=== PATIENT | female | born 1995 | race Caucasian/White ===

== ENCOUNTER 2018-06-14 07:32 | Day surgery (SDC) | payer OTHER ==
[~2018-06-14] VITALS: Ht 152.4 cm; Wt 44.8 kg
[~2018-06-14 07:32] MED LIST: ACETAMINOPHEN 650 MG SUPP PR ONE; LR 1,000 ML IV SCH
[2018-06-14] MEDS ORDERED: ROCURONIUM BROMIDE 50 MG/5 ML VIAL As Ordered ONE (07:52)
[2018-06-14] MEDS ORDERED: PROPOFOL 200 MG/20 ML VIAL As Ordered ONE (07:52)
[2018-06-14] MEDS ORDERED: LIDOCAINE 2% INJ 100 MG/5 ML SDV (FOR ANES.) As Ordered ONE (07:52)
[2018-06-14] MEDS ORDERED: ONDANSETRON 4MG/2ML VIAL (J2405) As Ordered ONE (07:52)
[2018-06-14] MEDS ORDERED: dexameTHASONE 4 MG/ML 1ML VIAL (J1100) As Ordered ONE (07:52)
[2018-06-14] MEDS ORDERED: KETOROLAC 60 MG/2 ML VIAL (J1885) As Ordered ONE (07:52)
[2018-06-14] MEDS ORDERED: MIDAZOLAM INJ 2 MG/2 ML VIAL (J2250) As Ordered ONE (07:53)
[2018-06-14] MEDS ORDERED: fentaNYL 100 MCG/2 ML INJECTION (J3010) As Ordered ONE ×2 (07:56→09:47)
[2018-06-14 08:00] LABS: HEMATOCRIT 42.1 % (36.0-47.0); HEMOGLOBIN 14.4 g/dl (12.0-15.5); MEAN CORPUSCULAR HEMOGLOBIN 33.6 pg (27.0-33.0); MEAN CORPUSCULAR HGB CONC 34.2 g/dl (32.0-36.5); MEAN CORPUSCULAR VOLUME 98.1 fl (80.0-96.0); PLATELET COUNT, AUTOMATED 270 10^3/uL (150-450); RED BLOOD COUNT 4.29 10^6/uL (4.00-5.40); WHITE BLOOD COUNT 7.4 10^3/uL (4.0-10.0)
[2018-06-14 08:24] LABS: BLOOD UREA NITROGEN 9 MG/DL (7-18); CALCIUM LEVEL 8.8 MG/DL (8.5-10.1); CARBON DIOXIDE LEVEL 28 MEQ/L (21-32); CHLORIDE LEVEL 106 MEQ/L (98-107); CREATININE FOR GFR 0.65 MG/DL (0.55-1.30); GLOMERULAR FILTRATION RATE > 60.0 (>60); GLUCOSE, FASTING 83 MG/DL (70-100); HCG, SERUM QUANTITATIVE < 1.0 MIU/ML; POTASSIUM SERUM 4.1 MEQ/L (3.5-5.1); SODIUM LEVEL 140 MEQ/L (136-145)
[2018-06-14] MEDS ORDERED: BUPIVACAINE HCL 0.25% 10 ML VIAL As Ordered ONE (09:07)
[2018-06-14] MEDS ORDERED: METHYLENE BLUE 0.5% (5MG/ML) 10 ML AMP (PROVAYBLUE)(Q9968 PER 1MG) As Ordered ONE (09:08)
[2018-06-14] MEDS ORDERED: ACETAMINOPHEN 650 MG SUPP As Ordered ONE (09:08)
[2018-06-14] MEDS ORDERED: SUGAMMADEX SODIUM 500 MG/5 ML VIAL (BRIDION) As Ordered ONE (09:51)
[2018-06-14] MEDS ORDERED: ONDANSETRON 4MG/2ML VIAL (J2405) IV PRN (10:45)
[2018-06-14] MEDS ORDERED: fentaNYL 100 MCG/2 ML INJECTION (J3010) IV PRN (10:45)
[2018-06-14] MEDS ORDERED: LR 1,000 ML IV SCH (10:45)
[2018-06-14] MEDS ORDERED: PERCOCET 5MG/325MG TAB PO PRN (10:45)
[2018-06-14] MEDS ORDERED: METOCLOPRAMIDE INJ 10MG/2ML VIAL (J2765) IV PRN (10:45)
[2018-06-14 12:28] VITALS: BP 119/63
[2018-06-14] MEDS ORDERED: KETOROLAC 30 MG/ML VIAL (J1885) IM PRN (16:00)
--- NOTE | 2018-06-21 18:55 | RO ---
DATE OF PROCEDURE: 06/14/2018 PREOPERATIVE DIAGNOSIS: Primary infertility. POSTOPERATIVE DIAGNOSIS: Primary infertility normal patent tubes. OPERATION PROPOSED: Diagnostic laparoscopy, chromotubation of tubes hysteroscopy D and C. OPERATION PERFORMED: Diagnostic laparoscopy, hysteroscopy, D and C chromotubation of tubes. ANESTHESIA: General plus local anesthetic for intraperitoneal procedures. ESTIMATED BLOOD LOSS: Less than 20 mL SURGEON: Dr. Dumont. OPERATIONS CHIEF: Dr. Castro for extraction retraction and visualization. After adequate anesthesia, prepped and draped in the lithotomy position, Kimball catheter in the bladder draining clear urine. Acetaminophen suppository 1300 mg per rectum, sequentials in place. A weighted speculum was placed in vagina. Single-tooth tenaculum on the anterior lip of the cervix. Uterus with sound depth of 7 cm. The uterine elevator was in place as well as the bulb for chromotubation with that done changing gloves reprepping and draping a small subumbilical incision was made. Veress needle was applied 4.1 liters of CO2 at a flow rate of 3 and to a maximum of 14 pressure. With that done direct entry with the 0-5 mm scope. No evidence of perforation, hemorrhage or bleeding. Panoramic review right upper quadrant is normal. Gallbladder area was normal. Interestingly and the right upper mid section. There was some adhesive bands not related endometriosis, possibly related to some inflammatory process in the late past. Did not interfere with any issues regarding infertility and does not require any operative intervention as it is not causing any pain. The left upper quadrant was normal. The anterior aspect of bladder was clear. The arch of the uterosacrals were clear. No evidence of deformity of the uterosacrals. No evidence of endometriosis. Both the right and left ovaries appeared to be normal. No evidence of endometriosis present. We then under direct vision placed dye through each tube was easily passed the dye test. The fimbriated ends were quite healthy and gushing of dye on both sides. With that done we did not find any evidence of reason for the infertility. This lady has had a workup of her lab work as well as her . There was no evidence to suggest any issues at the present time. Therefore, possibly even though she has had basal body temperature indicates ovulatory patterns she may need a referral to [facility] for further evaluation. With that done with instrument pad count correct, the 5 mm, scope on the left side was removed. We deflated to zero pressure removed the mainstem port then subcuticular stitches were placed in both incisional sites. Marcaine 0.25% 3M in each site with skin tapes. After changing gloves we went down below removed the Kimball bulb removed the uterine elevator, removed the chromotubation instrumentation. We hysteroscope the patient, both ostia were normal on either side anterior posterior lateral rosenthal were normal. No evidence of any scarring adhesions or deformity of the cavity, last period was 05/29/2018. We took a sample to indicate ovulatory function. The uterus was then placed anatomical position well contracted. We used 125 mL in 125 mL out with all instruments removed in the uterus in anatomical position correct we then placed the patient in the supine position and the patient was sent to recovery in good condition.
== END 2018-06-14 12:28 | disposition home or self-care (01) ==
LOC: M SDC 07:32
PROVIDERS: ATTEND Obstetrics & Gynecology
DX: N97.9 Female infertility, unspecified (principal)
CPT/HCPCS: 36415; 49320; 58350; 58558; 80048; 84702; 85027; 88305; J1100; J1885; J2250; J2405; J3010; Q9968